=== PATIENT | male | born 1950 | race Caucasian/White ===

== ENCOUNTER 2024-01-31 15:36 | Outpatient (REF) | payer SELFPAY | END 2024-01-31 15:37 | disposition home or self-care (01) | LOC: HO.HAP 15:36 | PROVIDERS: Visit Provider Internal Medicine | DX: Z13.89 Encounter for screening for other disorder (principal) ==

== ENCOUNTER 2024-02-10 11:19 | Outpatient (REF) | payer SELFPAY | END 2024-02-10 11:20 | disposition home or self-care (01) | LOC: HO.HAP 11:19 | PROVIDERS: Visit Provider Internal Medicine | DX: Z13.89 Encounter for screening for other disorder (principal) ==

== ENCOUNTER 2024-04-09 12:11 | Outpatient (REF) | payer SELFPAY | END 2024-04-09 12:12 | disposition home or self-care (01) | LOC: HO.HAP 12:11 | DX: Z13.89 Encounter for screening for other disorder (principal) ==

== ENCOUNTER 2024-06-20 08:06 | Outpatient (REF) | payer MEDICARE, SELFPAY | END 2024-06-20 08:07 | disposition home or self-care (01) | LOC: HO.SH 08:06 | PROVIDERS: Visit Provider Family Medicine | DX: Z01.118 Encounter for examination of ears and hearing with other abnormal findings (principal); H90.3 Sensorineural hearing loss, bilateral | CPT/HCPCS: 92557 ==

== ENCOUNTER 2024-06-20 09:01 | Outpatient (REF) | payer SELFPAY ==
--- NOTE | 2024-06-20 10:46 | MHC.AU.HA3 ---
Hearing Instrument Follow-Up- Binaural Date of Visit: 06/20/24 Right Ear: Make, Model, Color, Serial Number: Inocencia Cook P90-R SN: [id number] Color: Silver Brock Laminator Repair Warranty: 03/17/2024 Laminator Loss and Damage Warranty: 03/17/2024 [facility] Service Plan: 03/17/2024 Battery Size: Rechargeable Gauge And Instrument Inspector/Slim Tube: 1M Earmold/Dome/CShell/SlimTip:SlimTip Acrylic Canal SN: [id number] Type of Wax Guard: CeruStop on SlimTip; CeruShield on latent fingerprint examiner Dispensed By: [facility] Date of Fittin01/12/2021 Left Ear: Make, Model, Color, Serial Number: Inocencia Cook P90-R SN: [id number] Color: Silver Brock Laminator Repair Warranty: 03/17/2024 Laminator Loss and Damage Warranty: 03/17/2024 [facility] Service Plan: 03/17/2024 Battery Size: Rechargeable Gauge And Instrument Inspector/Slim Tube: 1M Earmold/Dome/CShell/SlimTip: SlimTip Acrylic Canal SN: [id number] Type of Wax Guard: CeruStop on SlimTip; CeruShield on latent fingerprint examiner Dispensed By: [facility] Date of Fittin01/12/2021 Follow-Up Summary: Updated hearing test - Hearing is stable. Cleaned HAs and EMs. Changed all four wax guards. Vacuumed microphones. Ran through [employer]. Reprogrammed to updated hearing test, putting in acoustic code for slim tips (previously programmed as c-shells). Reran feedback energy project manager which cut out high frequencies more, particularly in left ear. However, no perceived difference in sound quality in office. Advised to return within 2-3 weeks if changes negatively impact speech understanding to readdress feedback issue. Recommendations: Hearing instrument follow-up or maintenance as needed. Please contact our clinic with any questions or concerns. Diagnosis Code(s): Primary Diagnosis: H90.3 Bilateral Sensorineural Hearing Loss Signature: Provider: Brandee Thorne, [facility]
== END 2024-06-20 09:02 | disposition home or self-care (01) ==
LOC: HO.HAP 09:01
PROVIDERS: PCP Family Medicine; Visit Provider Family Medicine
DX: Z46.1 Encounter for fitting and adjustment of hearing aid (principal); H90.3 Sensorineural hearing loss, bilateral
CPT/HCPCS: 92593; V5267

== ENCOUNTER 2024-11-29 10:17 | Outpatient (REF) | payer SELFPAY ==
--- OUTSIDE RECORDS SUMMARY | 2024-11-29 12:04 | XMS_ITS | Clinical Summary ---
Author Organization [facility] Address [address] [address] Phone Care Team Providers Care Morale Officer Name Role Phone Pcp, Unknown Primary Care Provider Unavailabl e Allergies Active Allergy Reactions Criticality Noted Date Comments Morphine 03/28/2019 Medications No known medications Social History Tobacco Use Types Packs/Day Years Used Date Smoking Tobacco: Never Smokeless Tobacco: Never Alcohol Use Standard Drinks/Week Comments Never 0 (1 standard drink = 0.6 oz pur e alcohol) Education Answer Date Recorded Are you interested in more education? Not on yanci e 12/17/2022 Are you concerned about learning? Not on file 12/17/2022 No 12/17/2022 No 12/17/2022 Digital Access Answer Date Recorded No 01/15/2023 No 01/15/2023 No 01/15/2023 Reliable internet access at home? Not on file 01/15/2023 Device with a working camera? Not on file Sex and Gender Information Value Date Recorded Sex Assigned at Male 03/28/2019 3:47 PM EDT Gender Identity Male 03/28/2019 3:47 PM EDT Sexual Orientation Straight 03/28/2019 3: 47 PM EDT Last Filed Vital Signs Vital Sign Reading Time Taken Comments Blood Pressure 130/84 04/12/2019 7:59 PM EDT Pulse 85 04/12/2019 7:59 PM EDT Temperature 36.3 ??C (97.3 ??F) 04/12/2019 7:59 PM ED T Respiratory Rate 14 04/12/2019 7:59 PM EDT Oxygen Saturation 98% 04/12/2019 7:59 PM EDT Inhaled Oxygen Concentration - - Weight 97.5 kg (215 lb) 04/12/2019 3:35 PM EDT Height 180.3 cm (5' 11 ) 04/12/2019 3:35 PM EDT Body Mass Index 29.99 04/12/2019 3:35 PM EDT Plan of Treatment Health Maintenance Due Date Last Done Comments Adult Td,Tdap Booster 1950 LIPID PANEL 1950 DEPRESSION SCREENING 1963 HEPATITIS B SCREENING 1969 HEPATITIS C SCREENING 1969 COLOGUARD 1996 COLONOSCOPY 1996 COLORECTAL CANCER SCREENING 1996 FIT TEST 1996 FOBT 1996 SIGMOIDOSCOPY 1996 VIRTUAL COLONOSCOPY 1996 PNEUMOCOCCAL VACCINES (50+ years) (1 of 1 - PCV) 2001 ZOSTER VACCINES (1 of 2) 2001 INFLUENZA VACCINE (#1) 2024 , 07/25/2019, 06/27/2018, Additional history exists COVID-19 VACCINE (2 - 2023- season) 2024 10/22/2020 RSV VACCINE (1 - 1-dose 75+ series) 2026 SMOKING STATUS SCREENING (Once After 26 Yrs) Completed 04/12/2019 HEPATITIS A VACCINES Aged Out No long er eligible based on patient's age to complete this topic HEPATITIS B VACCINES Aged Out No long er eligible based on patient's age to complete this topic HIB VACCINES Aged Out No longer eligi ble based on patient's age to complete this topic MENINGOCOCCAL VACCINES (ACWY) Aged Out No longer eligible based on patient's age to complete this topic Medical Devices Not on file Care Teams Morale Officer Relationship Specialty Start Date End Date Pcp, Unknown PCP - General 05/15/21 Additional Source Comments The information contained in this document represents components of the legal health record. It is not the complete legal health record.[facility]
== END 2024-11-29 10:18 | disposition home or self-care (01) ==
LOC: HO.HAP 10:17
PROVIDERS: Visit Provider Family Medicine
DX: Z13.89 Encounter for screening for other disorder (principal)

== ENCOUNTER 2024-11-30 08:02 | Outpatient (REF) | payer SELFPAY ==
--- OUTSIDE RECORDS SUMMARY | 2024-11-30 08:07 | XMS_ITS | Clinical Summary ---
Author Organization [facility] Address [address] [place] [phone] Phone Care Team Providers Care Habilitation Training Specialist Name Role Phone Pcp, Unknown Primary Care [...] this topic Medical Devices Not on file David Mccartney Personal/Family Self 1950 [address] [place] David Mccartney Personal/Family Self 1950 14 [address] [facility] David Mccartney Personal/Family Self 1950 14 [address] [facility] David Mccartney Personal/Family Self 1950 14 [facility] David Mccartney Personal/Family Self 1950 14 [place] [facility] David Mccartney Personal/Family Self 1950 14 [address] [facility] David Mccartney Personal/Family Self 1950 14 [address] [place] David Mccartney Personal/Family Self 1950 14 [address] [place] Care Teams Habilitation Training Specialist Relationship Specialty Start Date End Date Pcp, Unknown PCP - General 05/15/21 Additional Source Comments The information contained in this document represents components of the legal health record. It is not the complete legal health record.[facility]
== END 2024-11-30 08:03 | disposition home or self-care (01) ==
LOC: HO.HAP 08:02
PROVIDERS: Visit Provider Family Medicine
DX: Z13.89 Encounter for screening for other disorder (principal)